=== PATIENT | female | born 1970 | race African-American/Black ===

== ENCOUNTER 2023-12-15 17:21 | Emergency (ER) | payer OTHER ==
[~2023-12-15] VITALS: Ht 160 cm; Wt 83.0 kg
[2023-12-15] MEDS ORDERED: ONDANSETRON 4 MG/2 ML VIAL ONE (17:51)
[2023-12-15] MEDS ORDERED: MORPHINE SULFATE 2 MG/1 ML DISP.SYRIN ONE (17:52)
[2023-12-15] MEDS ORDERED: MORPHINE SULFATE 4 MG/1 ML DISP.SYRIN ONE (17:52)
[2023-12-15 17:57] LABS: *BILIRUBIN,URIN NEGATIVE (NEGATIVE); *BLOOD, URINE NEGATIVE (NEGATIVE); *CLARITY,URINE CLEAR (CLEAR); *COLOR,URINE YELLOW (YELLOW); *KETONES,URINE NEGATIVE (NEGATIVE); *PROTEIN,URINE NEGATIVE (NEGATIVE); *UROBILINOGEN,URINE 0.2 E.U./dl (NORMAL); BASOPHILS % (AUTO) 0.8 % (0.0-2.0); EOSINOPHILS % (AUTO) 1.1 % (0.0-7.0); HEMOGLOBIN 12.8 g/dL (10.9-14.3); LEUKOCYTE ESTERASE ,URINE TRACE (NEGATIVE); LYMPHOCYTES % (AUTO) 43.9 % (20.5-51.5); MEAN CORPUSCULAR HEMOGLOBIN 29.3 uug (24.7-32.8); MEAN CORPUSCULAR HGB CONC 33 g/dL (32.3-35.6); MEAN CORPUSCULAR VOLUME 89.5 fL (75.5-95.3); MONOCYTES # (AUTO) 0.2 K/uL (0.1-1.30); MONOCYTES % (AUTO) 5.1 % (0.0-11.0); NEUTROPHILS # (AUTO) 2.2 K/uL (1.8-8.9); NEUTROPHILS % (AUTO) 49.1 % (38.5-71.5); NITRITE, URINE NEGATIVE (NEGATIVE); PLATELET COUNT (AUTO) 219 K/uL (179-408); RED BLOOD CELL COUNT(AUTO) 4.36 MIL/uL (3.63-4.92); RED CELL DISTRIBUTION WIDTH 16.4 % (12.3-17.7); UGLUCOSE NEGATIVE (NEGATIVE); WHITE BLOOD COUNT (AUTO) 4.5 K/uL (3.8-11.8)
[2023-12-15] MEDS: MORPHINE SULFATE 4 MG/1 ML DISP.SYRIN IV ONE (17:57)
[2023-12-15] MEDS: IV NORMAL SALINE 1000 ML BAG IV ONE (17:57)
[2023-12-15] MEDS: ONDANSETRON 4 MG/2 ML VIAL IV ONE (17:57)
[2023-12-15 17:58] LABS: DIFFERENTIAL COMMENT 1
[2023-12-15 18:02] LABS: CALCIUM 9.5 mg/dL (8.5-10.1); CREATININE 0.8 mg/dL (0.6-1.3); POTASSIUM 4.1 mmol/L (3.5-5.1)
[2023-12-15] MEDS ORDERED: HYDR-3980 PO (18:29)
[2023-12-15 18:54] VITALS: BP 160/90; TEMP 98; O2SAT 99
[2023-12-15 22:31] LABS: BACTERIA,URINE NONE SEEN /HPF (NONE SEEN); RBC,URINE 0-3 /HPF (0-3); SQUAMOUS EPITHELIAL CELL,UR FEW /HPF (NONE SEEN); WBC,URINE 0-3 /HPF (0-3)
== END 2023-12-15 19:10 | disposition home or self-care (01) ==
LOC: ER 17:22
DX: R10.9 Unspecified abdominal pain (principal); Z90.49 Acquired absence of other specified parts of digestive tract; Z98.890 Other specified postprocedural states; Z79.891 Long term (current) use of opiate analgesic; Z60.2 Problems related to living alone; Z88.5 Allergy status to narcotic agent
CPT/HCPCS: 36415; 85025; A4606; A4663; J2270; J2405; J7040

== ENCOUNTER 2024-08-11 11:08 | Emergency (ER) | payer OTHER ==
[~2024-08-11] VITALS: Ht 160 cm; Wt 88.5 kg
[~2024-08-11 11:08] MED LIST: HYDR-3980 PO
[2024-08-11] MEDS: IV NS 1000 ML 1,000 ML IV PRN (12:04)
[2024-08-11 12:20] LABS: BASOPHILS % (AUTO) 0.7 % (0.0-2.0); DIFFERENTIAL COMMENT 0; EOSINOPHILS # (AUTO) 0.1 K/uL (0.0-0.7); EOSINOPHILS % (AUTO) 1.7 % (0.0-7.0); HEMOGLOBIN 11.9 g/dL (10.9-14.3); LYMPHOCYTES # (AUTO) 1.6 K/uL (0.8-4.8); LYMPHOCYTES % (AUTO) 46.9 % (20.5-51.5); MEAN CORPUSCULAR HEMOGLOBIN 28.8 uug (24.7-32.8); MEAN CORPUSCULAR HGB CONC 32 g/dL (32.3-35.6); MONOCYTES # (AUTO) 0.2 K/uL (0.1-1.30); MONOCYTES % (AUTO) 6.5 % (0.0-11.0); NEUTROPHILS # (AUTO) 1.5 K/uL (1.8-8.9); NEUTROPHILS % (AUTO) 44.2 % (38.5-71.5); PLATELET COUNT (AUTO) 180 K/uL (179-408); RED BLOOD CELL COUNT(AUTO) 4.11 MIL/uL (3.63-4.92); RED CELL DISTRIBUTION WIDTH 16.8 % (12.3-17.7); WHITE BLOOD COUNT (AUTO) 3.4 K/uL (3.8-11.8)
[2024-08-11 12:22] LABS: *BILIRUBIN,URIN NEGATIVE (NEGATIVE); *BLOOD, URINE 3+ (NEGATIVE); *CLARITY,URINE CLEAR (CLEAR); *COLOR,URINE YELLOW (YELLOW); *KETONES,URINE NEGATIVE (NEGATIVE); *PROTEIN,URINE NEGATIVE (NEGATIVE); *UROBILINOGEN,URINE 0.2 E.U./dl (NORMAL); LEUKOCYTE ESTERASE ,URINE NEGATIVE (NEGATIVE); NITRITE, URINE NEGATIVE (NEGATIVE); UGLUCOSE NEGATIVE (NEGATIVE)
[2024-08-11 12:26] LABS: BACTERIA,URINE FEW /HPF (NONE SEEN); RBC,URINE 50-80 /HPF (0-3); WBC,URINE 0-3 /HPF (0-3)
[2024-08-11 12:26] LABS: CALCIUM 9.2 mg/dL (8.5-10.1); CREATININE 0.7 mg/dL (0.6-1.3); POTASSIUM 3.8 mmol/L (3.5-5.1)
[2024-08-11 12:26] LABS: *URINE HCG, QUAL NEGATIVE (NEGATIVE)
[2024-08-11] MEDS ORDERED: MORPHINE SULFATE 4 MG/1 ML DISP.SYRIN ONE ×2 (12:30→13:07)
[2024-08-11] MEDS ORDERED: ONDANSETRON 4 MG/2 ML VIAL ONE (12:30)
[2024-08-11] MEDS ORDERED: diphenhydrAMINE 25 MG/10 ML UDC ONE (12:37)
[2024-08-11] MEDS ORDERED: diphenhydrAMINE 50 MG/1 ML VIAL ONE (12:38)
[2024-08-11] MEDS: ONDANSETRON 4 MG/2 ML VIAL IV ONE (13:07)
[2024-08-11] MEDS: MORPHINE SULFATE 4 MG/1 ML DISP.SYRIN IV ONE ×2 (13:14→13:30)
[2024-08-11] MEDS: diphenhydrAMINE 50 MG/1 ML VIAL IV ONE (13:30)
[2024-08-11] MEDS: MIDAZOLAM HCL 2 MG/2 ML VIAL IV ONE (13:50)
[2024-08-11] MEDS ORDERED: MIDAZOLAM HCL 2 MG/2 ML VIAL ONE (13:56)
[2024-08-11] MEDS ORDERED: HYDROMORPHONE 1 MG/1 ML DISP.SYRIN ONE (14:10)
[2024-08-11] MEDS: HYDROMORPHONE 1 MG/1 ML DISP.SYRIN IV ONE (14:10)
[2024-08-11 18:15] VITALS: BP 134/79; TEMP 97.9; O2SAT 100
== END 2024-08-11 14:40 | disposition home or self-care (01) ==
LOC: ER 11:08
DX: R10.9 Unspecified abdominal pain (principal); Z76.5 Malingerer [conscious simulation]; Z87.442 Personal history of urinary calculi; Z90.49 Acquired absence of other specified parts of digestive tract; Z98.51 Tubal ligation status; Z88.1 Allergy status to other antibiotic agents; Z88.6 Allergy status to analgesic agent; Z88.7 Allergy status to serum and vaccine; Z60.2 Problems related to living alone
CPT/HCPCS: 99285; 74176; 96374; 96375; 96361; 80048; 81001; 84703; 85025; 36415; J1171; Q0163; J1200; J2405; J2270 ×2; J7040; A4606; A4663; J2250

== ENCOUNTER 2025-04-15 15:24 | Emergency (ER) | payer OTHER ==
[~2025-04-15] VITALS: Ht 154.9 cm; Wt 95.3 kg
[2025-04-15 15:26] VITALS: BP 166/99; O2SAT 96
[2025-04-15] MEDS: ACETAMINOPHEN 500 MG TABLET PO ONE (16:00)
== END 2025-04-15 16:18 | disposition left against medical advice (07) ==
LOC: ER 15:30
DX: M25.551 Pain in right hip (principal); I10 Essential (primary) hypertension; G89.29 Other chronic pain; L98.9 Disorder of the skin and subcutaneous tissue, unspecified; Z79.891 Long term (current) use of opiate analgesic; Z86.018 Personal history of other benign neoplasm; Z87.442 Personal history of urinary calculi; Z88.1 Allergy status to other antibiotic agents; Z88.6 Allergy status to analgesic agent; Z88.7 Allergy status to serum and vaccine; Z90.49 Acquired absence of other specified parts of digestive tract; Z98.51 Tubal ligation status
CPT/HCPCS: A4606; A4663